=== PATIENT | male | born 1995 | race Hispanic/Latino ===

== ENCOUNTER 2020-06-20 21:02 | Emergency (ER) | payer SELFPAY ==
[2020-06-20 22:52] LABS: Barbiturates NEGATIVE (NEGATIVE); Benzodiazepines NEGATIVE (NEGATIVE); Cocaine NEGATIVE (NEGATIVE); METHAMPHETAM NEGATIVE (NEGATIVE); Methadone NEGATIVE (NEGATIVE); Opiates NEGATIVE (NEGATIVE); Phencyclidine NEGATIVE (NEGATIVE); THC Cannibis POSITIVE (NEGATIVE)
[2020-06-20 23:38] LABS: Absolute Lymphocytes (CBC) 1.8 K/uL (0.7-4.9); Basophils % 0.3 % (0-1.3); Hematocrit 45.3 % (39.6-49.0); Lymphocytes % 11.8 % (15.3-44.8); MPV 9.6 fL (7.6-11.3); RBC Red Blood Cell Count 5.31 M/uL (4.33-5.43)
[2020-06-20 23:51] LABS: Protime INR 1.13
[2020-06-21 00:16] LABS: ALT/SGPT 31 U/L (12-78); AST/SGOT 13 U/L (15-37); Albumin 4.6 g/dL (3.4-5.0); Alkaline Phosphatase 70 U/L (45-117); BUN Blood Urea Nitrogen 6 mg/dL (7-18); Bicarbonate 27 mmol/L (21-32); Bilirubin Direct 0.1 mg/dL (0-0.2); Bilirubin Total 0.4 mg/dL (0.2-1.0); Glucose Level 96 mg/dL (74-106); Potassium 3.6 mmol/L (3.5-5.1); Protein, Total 8.3 g/dL (6.4-8.2); Sodium Level 140 mmol/L (136-145)
[2020-06-21 00:42] LABS: Urine Blood 2+ (NEG); Urine Glucose NEGATIVE (NEG); Urine Protein 1+ (NEG); Urine pH 6.5 (5.0-7.0)
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
--- NOTE | 2020-06-21 02:32 | EDPHYS ---
Physician Documentation [facility] Name: Richard Simpson Age: 25 yrs Sex: Male : 1995 Arrival Date: 06/20/2020 Time: 21:06 Bed 17 Private MD: ED Physician Tae Carrillo HPI: 06/20 22:22 This 25 yrs old Male presents to ER via Ambulatory with complaints of Psych kb Problem. 22:22 The patient presents to the emergency department with depression, over a relationship, kb suicide ideation, and the patient has a plan, to cut oneself and bleed. Onset: The symptoms/episode began/occurred 1 year(s) ago. Associated signs and symptoms: Pertinent positives; depression, suicide ideation. Severity of symptoms: At their worst the symptoms were moderate in the emergency department the symptoms are unchanged. The patient has not experienced similar symptoms in the past. The patient has not recently seen a physician. Pt reports he has had suicidal thoughts for a year and it is getting worse. He decided that he needs help so he came in. States it started when he lost custody of his daughter. Historical: - Allergies: 21:17 No Known Allergies; ca1 - Home Meds: 21:17 None [Active]; ca1 - PMHx: 21:17 None; ca1 - PSHx: 21:17 None; ca1 - Immunization history:: Flu vaccine is not up to date. - Social history:: Smoking status: Patient reports the use of cigarette tobacco products, denies chronic smoking, but will smoke occasionally, Patient uses street drugs, marijuana. ROS: 22:21 Constitutional: Negative for fever, chills, and weight loss, Cardiovascular: Negative kb for chest pain, palpitations, and edema, Respiratory: Negative for shortness of breath, cough, wheezing, and pleuritic chest pain, Abdomen/GI: Negative for abdominal pain, nausea, vomiting, diarrhea, and constipation, MS/Extremity: Negative for injury and deformity, Skin: Negative for injury, rash, and discoloration, Neuro: Negative for headache, weakness, numbness, tingling, and seizure. 22:21 Psych: Positive for suicidal ideation. Exam: 22:21 Constitutional: This is a well developed, well nourished patient who is awake, alert, kb and in no acute distress. Head/Face: Normocephalic, atraumatic. Chest/axilla: Normal chest wall appearance and motion. Cardiovascular: Regular rate and rhythm with a normal S1 and S2. No gallops, murmurs, or rubs. No pulse deficits. Respiratory: Lungs have equal breath sounds bilaterally, clear to auscultation. No rales, rhonchi or wheezes noted. No increased work of breathing, no retractions or nasal flaring. Abdomen/GI: Soft, non-tender, with normal bowel sounds. No distension. No guarding or rebound. No evidence of tenderness throughout. Skin: Warm, dry with normal turgor. Normal color with no rashes, no lesions, and no evidence of cellulitis. MS/ Extremity: Pulses equal, no cyanosis. Neurovascular intact. Full, normal range of motion. Neuro: Awake and alert, GCS 15, oriented to person, place, time, and situation. Cranial nerves II-XII grossly intact. Moves all extremities. Sensory grossly intact. Cerebellar exam normal. Normal gait. 22:21 Psych: Behavior/mood is pleasant, cooperative, Affect is calm, Oriented to person, place, time, Patient having thoughts of suicide. Plan for suicide is cut neck with a knife Judgement / Insight is normal. Memory is normal. Delusions/hallucinations are not present. 23:01 ECG was reviewed by the Attending Physician. Vital Signs: 21:11 BP 122 / 89; Pulse 103; Resp 16 S; Temp 97.6(TE); Pulse Ox 97% on R/A; Weight 81.65 kg ca1 (R); Height 5 ft. 2 in. (157.48 cm) (R); Pain 5/10; 21:11 Body Mass Index 32.92 (81.65 kg, 157.48 cm) ca1 MDM: 21:31 Patient medically screened. kb 22:21 Data reviewed: vital signs, nurses notes. Data interpreted: Pulse oximetry: on room air kb is 97 %. Interpretation: normal. 06/21 00:32 Transition of care: After a detail discussion of the patient's case, care is kb transferred to Tae Carrillo MD. 06/20 21:43 Order name: Acetaminophen; Complete Time: 00:23 kb 06/20 21:43 Order name: Basic Metabolic Panel; Complete Time: 00:23 kb 06/20 21:43 Order name: CBC with Diff; Complete Time: 23:51 kb 06/20 21:43 Order name: ETOH Level; Complete Time: 00:05 kb 06/20 21:43 Order name: Hepatic Function; Complete Time: 00:23 kb 06/20 20:43 Order name: PT-INR; Complete Time: 00:05 kb 06/20 20:43 Order name: Ptt, Activated; Complete Time: 00:05 kb 06/20 20:43 Order name: Salicylate; Complete Time: 00:05 kb 06/20 20:43 Order name: Urine Drug Screen kb 06/20 20:43 Order name: EKG; Complete Time: 22:53 kb 06/20 20:43 Order name: EKG - Nurse/Tech; Complete Time: 23:01 kb 06/20 20:43 Order name: IV Saline Lock; Complete Time: 23:14 kb 06/20 21:53 Order name: Urine Drug Screen; Complete Time: 22:55 EDMS 06/20 23:17 Order name: Urine Dipstick--Ancillary (enter results) tt3 06/20 20:43 Order name: Labs collected and sent; Complete Time: 23:01 kb 06/20 20:43 Order name: Urine Dipstick-Ancillary (obtain specimen); Complete Time: 22:24 kb EC/10 23:01 Rate is 83 beats/min. Rhythm is regular. QRS [place] is Normal. VA interval is normal at kb 142 msec. QRS interval is normal at 98 msec. QT interval is normal at 346 msec. Administered Medications: No medications were administered Disposition: 06/21 04:53 Co-signature as Attending Physician, Tae Carrillo MD I agree with the assessment and tw4 plan of care. Disposition: 06/21/20 02:31 Patient left the facility after being seen by provider. - Patient left due to (see nurse's notes). Signatures: Dispatcher [employer] EDSamra Krueger, DANIELLE-C SCIENTIST IMMUNOLOGY-Tae Adair MD MD tw4 Shawnee Marsh, RN RN [facility] El Garber RN RN sf
[2020-06-21 03:48] VITALS: BP 122/89; TEMP 97.6; O2SAT 97
--- NOTE | 2020-06-21 05:11 | EKG ---
Test Date: 2020-06-20 Test Time: 22:57:35 Registered Nurse Nursery: [facility] MEASUREMENT RESULTS: Intervals: Rate: 83 NV: 142 QRSD: 98 QT: 346 QTc: 406 [place]: P: 69 NV: 142 QRS: 20 T: 27 INTERPRETIVE STATEMENTS: Normal sinus rhythm Normal ECG No previous ECG available for comparison Electronically Signed On 06-21-20 05:11:05 [employer]AT [employer] by Aurelio Cast
== END 2020-06-21 02:31 | disposition left against medical advice (07) ==
LOC: ER 21:02
DX: R45.851 Suicidal ideations (principal); F17.210 Nicotine dependence, cigarettes, uncomplicated
CPT/HCPCS: 36415; 80048; 80076; 80307; 80320; 80329; 81003; 85025; 85610; 85730; 93005; 99284; U0003